=== PATIENT | male | born 1995 ===

== ENCOUNTER 2022-05-17 23:12 | Emergency (ER) | payer SELFPAY ==
[2022-05-17 23:17] VITALS: BP 134/82
--- NOTE | 2022-05-18 08:09 | Emergency Department Report ---
ED General Adult HPI - General Chief complaint: Upper Respiratory Infection Stated complaint: SHORTNESS OF BREATH PUI?: No Time Seen by Provider: 05/18/22 07:54 Source: patient, EMS Mode of arrival: Ambulatory Limitations: Language Barrier - History of Present Illness Initial comments: This is a 27-year-old male who denies any past medical history and denies any surgical history as well as not taking any medication but only state that he has been smoking for the past 5 years came in today with concerns of chest pain and also short of breath. According patient the chest pain is bilaterally seems like a sharp chest pain. Patient denies the chest pain radiate anywhere else and in the makes better or anything makes it worse. Patient denies any other symptoms such as fever chill night sweat dizziness blurred vision lighth eadedness headache tinnitus ear pain runny nose sore throat loss of taste loss of smell palpitation cough abdominal pain nausea vomiting diarrhea constipation joint pain muscle pain new rash heat or cold intolerance. Severity scale (0 -10): 3 - Related Data Allergies Allergy/AdvReac Type Severity Reaction Status Date / Time No Known Allergies Allergy Unverified 05/17/22 23:18 ED Review of Systems ROS: Stated complaint: SHORTNESS OF BREATH Other details as noted in HPI Comment: All other systems reviewed and negative Constitutional: no symptoms reported, see HPI Eyes: as per HPI ENT: as per HPI Respiratory: denies: cough, orthopnea, SOB with exertion, SOB at rest, stridor, wheezing Cardiovascular: chest pain. denies: palpitations, dyspnea on exertion, orthopnea, edema, syncope, paroxysmal nocturnal dyspnea Endocrine: no symptoms reported, see HPI Gastrointestinal: as per HPI Musculoskeletal: as per HPI Skin: as per HPI Neurological: as per HPI Psychiatric: as per HPI Hematological/Lymphatic: as per HPI ED Past Medical Hx - Past Medical History Previous Medical History?: No - Social History Smoking Status: Never Smoker ED Physical Exam - General Limitations: No Limitations, Language Barrier General appearance: alert, in no apparent distress - Head Head exam: Present: atraumatic, normocephalic, normal inspection - Eye Eye exam: Present: normal appearance, PERRL, EOMI Pupils: Present: normal accommodation - ENT ENT exam: Present: normal exam - Neck Neck exam: Present: normal inspection, full ROM - Respiratory Respiratory exam: Present: normal lung sounds bilaterally - Cardiovascular Cardiovascular Exam: Present: regular rate, normal rhythm, normal heart sounds - GI/Abdominal GI/Abdominal exam: Present: soft - Extremities Exam Extremities exam: Present: normal inspection, full ROM, normal capillary refill - Back Exam Back exam: Present: normal inspection, full ROM - Neurological Exam Neurological exam: Present: alert, oriented X3, CN II-XII intact - Psychiatric Psychiatric exam: Present: normal affect, normal mood - Skin Skin exam: Present: normal color ED Course Vital Signs 05/17/22 05/18/22 23:15 07:55 Temperature 98.6 F 98.2 F Pulse Rate 82 90 Respiratory 16 18 Rate Blood Pressure 134/82 134/82 [Right] O2 Sat by Pulse 99 100 Oximetry - Reevaluation(s) Reevaluation #1: 05/18/22 09:06 EKG AT 07:10 WITH SINUS RHYTHM AT 70 BPM; NO ST ELEVATION OR DEPRESSION; NO WELLEN WAVES. ED Medical Decision Making - Lab Data Result diagrams: 05/18/22 08:05 05/18/22 08:05 Critical care attestation.: If time is entered above; I have spent that time in minutes in the direct care of this critically ill patient, excluding procedure time. ED Disposition Clinical Impression: Hypokalemia, Non-cardiac chest pain Disposition: HOME / SELF CARE / HOMELESS Is pt being admited?: No Does the pt Need Aspirin: No Condition: Stable Instructions: Nonspecific Chest Pain, Adult Additional Instructions: Make a follow-up appointment with your primary care provider to be seen within 3 days for further outpatient evaluation. Referrals: CINDI LARA MD [Primary Care Provider] - 3-5 Days Time of Disposition: 15:13
--- NOTE | 2022-05-18 08:19 | XRay Report ---
CHEST 1 VIEW 05/18/2022 7:13 AM INDICATION / CLINICAL INFORMATION: sob/cp. COMPARISON: None available. FINDINGS: SUPPORT DEVICES: None. HEART / MEDIASTINUM: No significant abnormality. LUNGS / PLEURA: No significant pulmonary or pleural abnormality. No pneumothorax. ADDITIONAL FINDINGS: No significant additional findings. IMPRESSION: 1. No acute findings. Signer Name: Keenan Cruz MD Signed: 05/18/2022 8:15 AM Workstation Name: [id number]
[2022-05-18 08:54] LABS: Hematocrit 49.6 % (35.5-45.6); Hemoglobin 17.1 gm/dl (11.8-15.2); Mean Corpuscular HGB Conc 35 % (32-34); Mean Corpuscular Volume 88 fl (84-94); Platelet Count 180 K/mm3 (140-440); Red Blood Count 5.65 M/mm3 (3.65-5.03); Red Cell Distribution Width 13.5 % (13.2-15.2)
[2022-05-18 09:15] LABS: Alanine Aminotransferase 18 units/L (7-56); Albumin 4.9 g/dL (3.9-5); BUN/Creatinine Ratio 16; Blood Urea Nitrogen 13 mg/dL (9-20); Calcium 9.8 mg/dL (8.4-10.2); Hemolysis Index 7
[2022-05-18] MEDS ORDERED: POTASSIUM CHLORIDE ER 20 MEQ TAB PO ONE (14:14)
--- NOTE | 2022-05-18 15:06 | Cat Scan Report ---
CTA CHEST WITH CONTRAST INDICATION / CLINICAL INFORMATION: ddimer high; r/o pe. TECHNIQUE: Axial CT images were obtained through the chest after injection of IV contrast. 3 plane NJ P and/or 3D reconstructions were produced. All CT scans at this location are performed using CT dose reduction for ALARA by means of automated exposure control. COMPARISON: None available. FINDINGS: PULMONARY EMBOLUS: None. THORACIC AORTA: No significant abnormality. HEART: No significant abnormality. CORONARY ARTERY CALCIFICATION: Absent -- None. MEDIASTINUM / HUONG: No significant abnormality. PLEURA: No pleural effusion. No pneumothorax. LUNGS: No acute air space or interstitial disease. ADDITIONAL FINDINGS: None. UPPER ABDOMEN: No acute findings. SKELETAL STRUCTURES: No significant osseous abnormality. IMPRESSION: 1. No CT evidence for pulmonary embolism. 2. No acute findings. Signer Name: Nacho Grande MD Signed: 05/18/2022 3:02 PM Workstation Name: [id number]
[2022-05-18] MEDS ORDERED: IPRATROPIUM/ALBUTEROL SULFATE 3 ML AMPUL.NEB IH ONE (15:11)
--- NOTE | 2022-05-19 09:03 | Electrocardiograph Report ---
[facility], [place] Test Date: 2022-05-18 Test Time: 07:10:42 Pat Name: SNOW LY Department: Room: Gender: M Raise Driller: CAMILA : 1995 Requested By: GHAZAL VANN Order Number: [id number] Reading MD: Juan Carlos Licona Measurements Intervals [place] Rate: 70 P: 46 NE: 130 QRS: 45 QRSD: 115 T: 17 QT: 385 QTc: 415 Interpretive Statements Sinus rhythm Nonspecific intraventricular conduction delay Probable lateral infarct, old No previous ECG available for comparison Electronically Signed On 05-19-2022 9:03:34 EDT by Juan Carlos Licona
== END 2022-05-18 16:44 | disposition home or self-care (01) ==
LOC: ED 23:12
DX: R07.89 Other chest pain (principal); E87.6 Hypokalemia
CPT/HCPCS: 36415; 71045; 71275; 80053; 83735; 84484; 85027; 85379; 93005; 94640; 99285; Q9967; 94644